=== PATIENT | male | born 2000 | race Caucasian/White ===

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

== ENCOUNTER 2021-06-14 15:28 | Emergency (ER) | payer BC, OTHER ==
[~2021-06-14] VITALS: Ht 188 cm; Wt 73.9 kg
--- NOTE | 2021-06-14 15:50 | NUR ---
Patient alert and orientedx4 complaints of right lower ext injury today, right ankle swelling noted. Vitals stable.
--- NOTE | 2021-06-14 15:55 | NUR ---
MD at bedside, medical screening exam in process.
--- NOTE | 2021-06-14 16:29 | NUR ---
Patient discharged to home in stable condition. Written and verbal after care instructions given. Patient verbalizes understanding of instructions. Stressed follow up or return to ER for worsening s/s.
== END 2021-06-14 16:30 | disposition home or self-care (01) ==
LOC: ER 15:29
DX: S93.401A Sprain of unspecified ligament of right ankle, initial encounter (principal); W18.49XA Other slipping, tripping and stumbling without falling, initial encounter; Y93.67 Activity, basketball; Y92.310 Basketball court as the place of occurrence of the external cause
CPT/HCPCS: 73610; A4663

== ENCOUNTER 2021-06-24 13:19 | Emergency (ER) | payer BC, OTHER ==
[~2021-06-24] VITALS: Ht 188 cm; Wt 73.9 kg
--- NOTE | 2021-06-24 13:35 | NUR ---
DR WILLIS AT BEDSIDE FOR EVALUATION.
== END 2021-06-24 14:05 | disposition home or self-care (01) ==
LOC: ER 13:22
DX: S93.401D Sprain of unspecified ligament of right ankle, subsequent encounter (principal); W18.49XD Other slipping, tripping and stumbling without falling, subsequent encounter; M25.471 Effusion, right ankle
CPT/HCPCS: 73610; A4663